=== PATIENT | male | born 1960 | race Caucasian/White ===

== ENCOUNTER 2019-05-09 07:59 | Outpatient (CLI) | payer OTHER, SELFPAY ==
--- NOTE | 2019-05-09 08:43 | MR_ITS ---
WS: [id number] MRI THORACIC SPINE , noncontrast. HISTORY: POST LAMINECTOMY SYNDROME COMPARISON: None available. TECHNIQUE: Multiplanar sequences are performed in sagittal and axial planes. Very mild LEFT convex curvature of the thoracic spine. Posterior vertebral body alignment is normal. There is very minimal narrowing of the disc spaces and desiccation and small osteophytes from the end plates. Signal within the cord is normal. No cord enlargement or atrophy. Conus tapers normally at th e T12-L1 level. T1-2: Normal. T2-3: Normal. T3-4: Normal. T4-5: Normal. T5-6: Normal. T6-7: Normal. T7-8: Mild facet joint arthropathy. T8-9: Shallow RIGHT paracentral disc osteophyte protrusion. No significant impingement or encroachme nt upon the cord. T9-10: Mild bilateral facet joint arthropathy. Very mild narrowing of the RIGHT foramen due to osteo phyte disease. T10-11: Moderate bilateral facet joint arthropathy. Largest osteophyte on the RIGHT encroaches upon the posterior lateral RIGHT thecal sac. There is still a small amount of CSF surrounding the cord. Mi ld RIGHT foraminal stenosis. T11-12: Normal. Paraspinal soft tissues are negative. MR/MR thoracic spin wo con* [id number] IMPRESSION: 1. No compression fractures or significant central or foraminal stenosis. 2. Facet joint arthropathy is mild to moderate, most significant at the T10-11 level. 3. Mild RIGHT foraminal stenosis at T9-T10 and T10-11 due to osteophyte and fa cet disease. 4. Shallow RIGHT paracentral disc osteophyte protrusion at T8-9.
--- NOTE | 2019-05-09 08:43 | MR_ITS ---
WS: [id number] MRI LUMBAR SPINE NONCONTRAST HISTORY: POST LAMINECTOMY SYNDROME COMPARISON: CT lumbar spine 01/14/2019. TECHNIQUE: Sagittal and axial multisequence imaging is submitted. Patient refused contrast. Extensive posterior lumbar fusion beginning from L4 to S2. Pedicle screws and vertical rods are intac t. No fracture identified. No lucency around the hardware. Interbody spacer at L5-S1 with disc height being maintained. No fracture or marrow edema. Conus terminates normally at L1. L1-L2: Normal. L2-L3: Small amount of fluid in the LEFT facet joint. No stenosis. L3-L4: Facet joint arthropathy with very mild narrowing of the foramen. No significant stenosis. L4-L5: Large posterior laminectomy defects. No encroachment on narrowing of the canal or thecal sac. Very mild clumping of the nerve roots posteriorly. L5-S1: Large posterior laminectomy defects. No central canal stenosis. Mild LEFT foraminal stenosis d ue to disc osteophyte disease. No severe stenosis. Nerve roots are clumped within the periphery of th e thecal sac. Patient has a single right-sided kidney. There is a cyst exophytic from measuring 1.2 cm from the pos terior kidney. MR/MR lumbar spine wo con* [id number] IMPRESSION: 1. Status post L4-S2 bilateral posterior fusion with L5-S1 interbody disc spac er. No complications or fracture. 2. Large posterior laminectomy defects L4-5 and L5-S1. 3. No significant central or foraminal stenosis. Mild LEFT foraminal stenosis at L5-S1 due to disc osteophyte disease.
--- NOTE | 2019-05-09 10:42 | XR_ITS ---
WS: [id number] LATERAL LUMBAR SPINE: 3 view. Lateral radiographs are performed in upright neutral, flexion and extension to the patient's toleranc e. HISTORY: POST LAMINECTOMY SYNDROME COMPARISON: None available. Status post lumbar fusion from L4 to S1 bilaterally. Vertical rods and pedicle screws are intact. Normal lumbar alignment. With flexion and extension there is no instability. Interbody spacer at L5-S 1 maintains the disc space height. XR/XR lumbar spine f/e only [id number] IMPRESSION: 1. Status post lumbar fusion from L4 to S1. 2. No lumbar instability.
== END 2019-05-09 08:00 | disposition home or self-care (01) ==
LOC: RADWPI 08:07
PROVIDERS: Family Provider Family Medicine; PCP Family Medicine; Visit Provider Anesthesiology Pain Medicine
DX: M96.1 Postlaminectomy syndrome, not elsewhere classified (principal); Z98.1 Arthrodesis status; M48.04 Spinal stenosis, thoracic region; M51.24 Other intervertebral disc displacement, thoracic region; N28.1 Cyst of kidney, acquired
CPT/HCPCS: 72120; 72146; 72148